=== PATIENT | female | born 2000 | race Caucasian/White ===

== ENCOUNTER 2019-10-03 15:39 | Emergency (ER) | payer MEDICAID, SELFPAY ==
[2019-10-03 15:41] VITALS: BP 134/77; PULSE 106; RESP 19; TEMP 36.5; O2SAT 97; BMI 32.1
[2019-10-03 16:21] VITALS: RESP 16
--- NOTE | 2019-10-03 17:16 | ED.VISSUMM ---
- ER Visit Summary Date of Service: 10/03/19 Chief Complaint: Left index finger injury History of Present Illness: The patient is a 19 F who presents with injury to her left index finger that occurred proximately 3 hours prior to arrival. Patient got her finger closed in a car door. Patient went to the urgent care and was referred to the emergency department for possible fracture. Patient denies any paresthesias or weakness. Patient describes her pain as aching and burning. Patient states nothing makes it worse or makes it better. Patient denies any other injuries. Patient states her last tetanus was a few months ago. Physical Examination: All signs are stable. Patient is afebrile. Patient is in no acute distress. Examination of the left index finger revealed tenderness over the middle and distal phalanges. There is some mild edema. There is no obvious deformity noted. There is a superficial abrasion on the dorsal aspect of the distal phalanx. There is a 2 cm laceration on the volar aspect of the distal phalanx. There is moderate gapping of the wound margins. There is no active bleeding. There are no foreign bodies visualized. Test Results: X-rays of the left index finger were obtained. There is no acute fracture. This is interpreted by the radiologist and reviewed by myself. Emergency Department Course and Treatment: The wound was cleaned and irrigated with copious amounts of normal saline. The wound was anesthetized with 1% plain lidocaine via digital block. The wound was closed with 2 simple interrupted #4-0 nylon sutures under sterile technique. Patient tolerated the procedure well. Bacitracin dressing was applied. Disposition: Discharge home Impression: Left index finger laceration This note was generated with [employer] dictation software. It may contain incorrect words, spelling, and punctuation that were not noted in review of the chart prior to signing ED Disposition - Plan for ED Patient: Disposition: Home or Assisted Living Diagnosis: Laceration of left index finger w/o foreign body w/o damage to nail Instructions: ED Laceration Hand Referrals: [facility] Doctor,Out of [NON-STAFF] - 7 Days for suture removal
--- NOTE | 2019-10-03 17:25 | RAD_ITS ---
STUDY: X-RAY - LEFT HAND, ATTENTION INDEX FINGER REASON FOR EXAM: Female, 19 years old. CAUGHT 2ND DIGIT IN CAR DOOR TECHNIQUE: 3 view(s) of the finger were obtained. COMPARISON: None. FINDINGS: Normal metacarpal head. Normal metacarpophalangeal joint. Normal proximal phalanx. Normal middle phalanx. Normal distal phalanx. Normal proximal interphalangeal joint. Normal distal interphalangeal joint. Probable small bone island within the distal shaft of the proximal phalanx RAD/Finger(s) Min 2 Views IMPRESSION: No acute fracture or dislocation. Electronically Signed: Christofer Drummond MD at 17:38 EDT , Service support ,
[2019-10-03] MEDS: BACITRACIN 15 GM Tube 1 APPLIC TOPICAL (18:35)
[2019-10-03] MEDS: HYDROcodone Bitartrate/Apap 5/325 Tablet PO (18:35)
== END 2019-10-03 19:43 | disposition home or self-care (01) ==
PROVIDERS: Emergency Provider Emergency Medicine
DX: S61.211A Laceration without foreign body of left index finger without damage to nail, initial encounter (principal); W23.0XXA Caught, crushed, jammed, or pinched between moving objects, initial encounter; Y93.9 Activity, unspecified; Y92.9 Unspecified place or not applicable
CPT/HCPCS: 12001; 73140; 99283